=== PATIENT | male | born 1995 | race Caucasian/White ===

== ENCOUNTER 2025-06-16 14:01 | Emergency (ER) | payer BC, SELFPAY ==
[2025-06-16 14:00] VITALS: BP 145/84; PULSE 63; PULSE 67; RESP 16; TEMP 36.6; O2SAT 100; BMI 32.6
[2025-06-16 14:13] VITALS: BMI 32.6
[2025-06-16 14:31] VITALS: BP 152/80; PULSE 76; RESP 15; O2SAT 98
--- NOTE | 2025-06-16 14:31 | CT_ITS ---
PROCEDURE: STROKE BRAIN/HEAD WITHOUT CONT 06/16/2025 REASON FOR EXAM: NEURO DEFICIT, ACUTE, STROKE SUSPECTED TECHNIQUE: Procedure Code: CTBR.ST Modality: CT Procedure: STROKE BRAIN/HEAD WITHOUT CONT Coronal and Sagittal reconstruction series were provided. One or more dose reduction techniques were used (e.g., Automated exposure control, adjustment of the mA and/or kV according to patient size, use of iterative reconstruction technique. RADIATION DOSE SUMMARY: DLP: 1262 mGycm COMPARISON: None FINDINGS: There is no acute infarct, intracranial hemorrhage, or mass effect. There is no hydrocephalus or significant midline shift. No acute, depressed calvarial fractures. No large scalp hematomas. The paranasal sinuses are clear. CT/STROKE Brain/Head without Cont IMPRESSION: No acute, large territorial infarction. Stroke Alert: Negative The critical findings in the findings and impression above were relayed directl y by me by telephone to Eddie Dallas on 06/16/2025 at 3:31 pm with readback verification. Reading Location: [id number]
--- NOTE | 2025-06-16 14:31 | EKG12_ITS ---
Test Reason : NEURO Blood Pressure : */* mmHG Vent. Rate : 62 BPM Atrial Rate : 62 BPM P-R Int : 150 ms QRS Dur : 98 ms QT Int : 434 ms P-R-T Axes : 37 15 13 degrees QTcB Int : 440 ms Normal sinus rhythm Possible Left atrial enlargement Borderline ECG Confirmed by JUAN CARLOS DIETZ, MIKE ([id number]), school photograph editor JUANITO CARRILLO ([id number]) on 06/17/2025 9:16:36 AM Referred By: Confirmed By: MIKE RANGEL MD
--- NOTE | 2025-06-16 14:32 | CT_ITS ---
PROCEDURE: STROKE CTA HEAD AND NECK W/CON 06/16/2025 REASON FOR EXAM: NEURO DEFICIT, ACUTE, STROKE SUSPECTED TECHNIQUE: Procedure Code: CTCTA.ST.HN Modality: CT Procedure: STROKE CTA HEAD AND NECK W/CON Multiplanar Sagittal and Coronal images were obtained. CONTRAST: 100 mL of Isovue 370 One or more dose reduction techniques were used (e.g., Automated exposure control, adjustment of the mA and/or kV according to patient size, use of iterative reconstruction technique). RADIATION DOSE SUMMARY: DLP: 562 mGycm COMPARISON: None FINDINGS: The aortic arch demonstrates a type I configuration. The ostia of the great vessels are patent. There is conventional branching. The right CCA is patent. There is no significant stenosis of the right carotid bifurcation by NASCET criteria. The cervical right ICA is patent. The right MCA and right MALLORY appear patent. There is no large vessel occlusion. The left CCA is patent. There is no significant stenoses at the left carotid bifurcation by NASCET criteria. The cervical left ICA is patent. The left MCA and left MALLORY appear patent. There is no large vessel occlusion. The right vertebral artery arises from the right subclavian artery. The left vertebral artery arises from the left subclavian artery. Both vertebral arteries are patent. Both vertebral arteries join to form the patent basilar artery. Both posterior cerebral arteries arise from the tip of the basilar. Both proximal [employer]PER[employer]OR segments are patent. There is no large vessel occlusion. There is no enhancing intracranial mass. Shotty cervical lymph nodes are identified. The thyroid gland is heterogeneous. The lung apices demonstrate no pneumothorax. No destructive osseous abnormalities identified. CT/STROKE CTA Head AND Neck W/Con IMPRESSION: No high-grade stenosis or acute large vessel occlusions. The critical findings in the findings and impression above were relayed directl y by me by telephone to Eddie Dallas on 06/16/2025 at 3:36 pm with readback verification. Reading Location: [id number]
--- NOTE | 2025-06-16 14:32 | EDS_ITS ---
HPI History of Present Illness Chief Complaint: Neuro S/Sx Informant: patient Onset/Context/Timing Onset: Today and Hours Context: Sudden Onset Timing: Continuous Quality and Location: Positive for Left Arm Weakness and Left Leg Weakness Onset: Around 1 PM. 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 A second 1 to 2 years ago. 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 Said prior episodes like this before he said they have also told him maybe an anxiety component to this. Currently symptoms have totally resolved. He denies any headache or head trauma. He denies any numbness or weakness. Prior similar symptoms: Yes Recent Illness/Hospitalization: No PFSH PFSH Medical History Anxiety GERD (gastroesophageal reflux disease) Sandoval's palsy Allergy/AdvReac Type Severity Reaction Status Date / Time No Known Allergies Allergy Verified 06/16/25 14:08 Surgical History H/O right shoulder surgery Social History Smoking Status: Former smoker ROS ROS ED ROS Narrative Denies recent illness. Constitutional Constitutional ED: Denies chills or fever(s) Eyes Eyes: Denies blurry vision ENT ENT ED: Denies ear pain Cardiovascular Cardiovascular: Denies chest pain Respiratory/Chest Respiratory/Chest: Denies cough or dyspnea Gastrointestinal Gastrointestinal: Denies abdominal pain Genitourinary Genitourinary ED: Denies dysuria or hematuria Musculoskeletal Musculoskeletal: Denies arthralgias Integumentary Denies abscess Neurologic Neurologic: Denies headache(s) Psychiatric Psychiatric: Denies anxiety or depression Endocrine Endocrinology: Denies polydipsia or polyphagia Hematologic/Lymphatic Hematologic/Lymphatic: Denies easy bleeding, easy bruising or lymphadenopathy Allergic/Immunologic Allergic/Immunologic ED: Denies mouth swelling, urticaria or other EXAM Physical Exam Narrative Exam Narrative: 30-year-old male sitting upright in bed vital signs stable afebrile. No acute distress. Pulse ox 100% on room air no hypoxia. H EENT exam normal. Pupils round react light. Active motions are intact. No facial droop. Normal speech. Neck nontender. Lungs clear to auscultation bilaterally. Heart regular rhythm rate about 65 no murmur. Chest wall ribs nontender. Abdomen soft nontender. Pelvic girdle intact. Moving all 4 extremities. Bilateral equal and symmetrical 5-5 professional skater strength. Dorsi plantarflexion intact. Gwum-oh-tfws within normal limits. No drift of either upper or lower extremities. Neurologic exam normal. NIH 0. Again no facial droop. Normal speech. Bilateral professional skater strength. Bilateral dorsi plantarflexion. Auvj-eh-xsev fing er-to-nose within normal limits. Const Vital Signs: 06/16/25 14:00 06/16/25 14:00 06/16/25 14:31 Temperature 97.8 F 97.8 F Temperature Source Oral Oral Pulse Rate 63 67 Respiratory Rate 16 16 Blood Pressure 145/84 H 145/84 H Blood Pressure Mean 104 104 Pulse Ox 100 100 Oxygen Delivery Method Room Air Room Air Room Air 06/16/25 14:31 06/16/25 14:59 06/16/25 15:00 Temperature Temperature Source Pulse Rate 76 70 85 Respiratory Rate 15 22 H 22 H Blood Pressure 152/80 H 149/86 H 149/86 H Blood Pressure Mean 104 107 107 Pulse Ox 98 98 97 Oxygen Delivery Method Room Air Room Air Room Air 06/16/25 15:38 Temperature Temperature Source Pulse Rate 70 Respiratory Rate 11 L Blood Pressure 126/67 H Blood Pressure Mean 86 Pulse Ox 98 Oxygen Delivery Method Room Air MDM MDM MDM Narrative Medical decision making narrative: 30-year-old male transient left arm and leg weakness completely resolved. His exam is benign he had episodes like this before. He has never had a stroke or mini stroke he has never had any head or neck surgeries. He will undergo a stroke workup he is not a stroke team because NIH is 0. I have very low suspicion this is actually a stroke or mini stroke. Repeat exam at 3:25 PM patient doing well. Awake alert. Repeat neurologic exam normal. NIH 0. Answering questions following commands no facial droop. Normal bilateral 5/5 professional skater strength. Dorsi plantarflexion intact. Fingertip to nose within normal limits. No drift. Clinically I do not think is a stroke or mini stroke. He does not have Sandoval's palsy today. Patient said he drank multiple cups of coffee and energy drinks today. Maybe that set off an anxiety attack. He will be discharged home with outpatient follow-up. Return if worse. History & Record Review Discussion w/independent historian: Patient Additional record(s) reviewed:: No prior records Lab Data Attestation: I reviewed the patient's lab results. Lab results narrative: CBC normal. White count 6. H&H 15 and 44. Platelets 321. Electrolytes show gap 15. Normal BUN and creatinine of 19 and 1.1. Glucose 90. Troponin less than 6. CT brain and CTA head and neck are negative. Read by the radiologist. Labs: Laboratory Results - last 24 hr 06/16/25 14:00 WBC 6.5 RBC 5.08 Hgb 15.4 Hct 44.1 MCV 86.8 MCH 30.3 MCHC 34.9 RDW Std Deviation 37.5 RDW Coeff of Roddy 11.8 Plt Count 321 MPV 9.7 Immature Gran % (Auto) 0.500 Neut % (Auto) 55.6 Lymph % (Auto) 33.0 [place] % (Auto) 9.1 Eos % (Auto) 0.9 Baso % (Auto) 0.9 Absolute Neuts (auto) 3.6 Absolute Lymphs (auto) 2.15 Nucleated RBC % 0 Sodium 140 Potassium 3.7 Chloride 102 Carbon Dioxide 23.8 Anion Gap 15 BUN 19 Creatinine 1.14 Estim Creat Clear Calc 133.81 Est GFR (MDRD) Non-Af 90 BUN/Creatinine Ratio 16.4 Glucose 90 Calcium 9.6 Troponin T High Sens < 6 Radiography Diagnostic Testing: Clinical Impression(s) from Imaging Studies Brain CT 06/16/25 14:31 IMPRESSION: No acute, large territorial infarction. Stroke Alert: Negative The critical findings in the findings and impression above were relayed directly by me by telephone to Eddie Dallas on 06/16/2025 at 3:31 pm with readback verification. Reading Location: [facility] Head/Neck CTA 06/16/25 14:32 IMPRESSION: No high-grade stenosis or acute large vessel occlusions. The critical findings in the findings and impression above were relayed directly by me by telephone to Eddie Dallas on 06/16/2025 at 3:36 pm with readback verification. Reading Location: [facility] Rhythm Strip Rhythm Strip: Sinus Rhythm Rate: 62 Ectopy: None EKG Initial EKG: Attestation: I personally reviewed and interpreted this EKG as follows: Interpretation: Sinus Rhythm and No Acute Injury Pattern Comments: Normal sinus rhythm rate of 62 no acute signs of KS or ischemia. No dysrhythmia. Discharge Plan Triage Chief Complaint: Neuro S/Sx ED Provider: Eddie Dallas Dx/Rx/DC Orders Clinical Impression: Anxiety attack, Weakness Instructions: ED Panic Attack Primary Care Provider: Lewis Ivan,Out of Referrals: Lewis Ivan,Out of [Primary Care Provider, Medical] - As Needed Activity Restrictions/Additional Instructions: Follow-up with your doctor as needed. Your exam, labs, EKG and CAT scan today were all normal. Print Language: Irish Disposition Disposition: Home, Self Care
[2025-06-16 14:41] LABS: Hematocrit 44.1 % (40-54); Hemoglobin 15.4 g/dL (13.0-16.5); Immature Granulocytes Count 0.030 X10^3/uL (0.0-0.0); Mean Corp Hgb Conc 34.9 g/dL (32-36); Mean Corpuscular Volume 86.8 fL (80-94); Mean Platelet Vol. 9.7 fl (6.2-12.0); NRBC Flagged by Analyzer 0 % (0-5); Platelet Count 321 K/mm3 (150-450); RBC Distribution Width CV 11.8 % (11.6-14.6); RBC Distribution Width SD 37.5 fl (35.1-43.9); Red Blood Count 5.08 M/mm3 (4.6-6.2); White Blood Count 6.5 K/mm3 (4.4-11.0)
[2025-06-16 14:59] VITALS: BP 149/86; PULSE 70; RESP 22; O2SAT 98
[2025-06-16 15:00] VITALS: BP 149/86; PULSE 85; RESP 22; O2SAT 97
[2025-06-16 15:04] LABS: Anion Gap 15 (5-15); BUN 19 mg/dL (4-19); BUN/Creat Ratio 16.4 RATIO (10-20); Calcium,Total 9.6 mg/dL (7.6-11.0); Carbon Dioxide 23.8 mmol/L (21.0-32.0); Chloride 102 mmol/L (98-108); Estimated Creatinine Clearance 133.81 ml/min (50-250); Glucose 90 mg/dL (70-99); Potassium 3.7 mmol/L (3.3-5.1); Troponin T High Sensitivity < 6 ng/L (<=22)
[2025-06-16 15:38] VITALS: BP 126/67; PULSE 70; RESP 11; O2SAT 98
[2025-06-16 15:57] VITALS: BP 126/67; PULSE 70; RESP 11; TEMP 36.9; O2SAT 98
== END 2025-06-16 15:58 | disposition home or self-care (01) ==
PROVIDERS: Emergency Provider Emergency Medicine; Visit Provider Emergency Medicine
DX: F41.9 Anxiety disorder, unspecified (principal); R53.1 Weakness; R29.898 Other symptoms and signs involving the musculoskeletal system; R29.700 NIHSS score 0; Z87.891 Personal history of nicotine dependence; G51.0 Bell's palsy; K21.9 Gastro-esophageal reflux disease without esophagitis
CPT/HCPCS: 70450; 70496; 70498; 80048; 84484; 85025; 93005; 99285; Q9967